=== PATIENT | male | born 1980 | race African-American/Black ===

== ENCOUNTER 2020-11-05 00:36 | Emergency (ER) | payer OTHER ==
--- NOTE | 2020-11-05 01:15 | ED Physician Documentation ---
PD HPI ABD PAIN - Stated complaint Stated Complaint: AB PX - Chief complaint Chief Complaint: Abd Pain - History obtained from History obtained from: Patient - History of Present Illness Timing - onset: How many days ago (2) Timing - details: Gradual onset, Constant, Waxing and waning Pain level max: 10 Quality: Pain Location: Other (across lower abdomen) Radiation: Lower back Improved by: Laying still Worsened by: Moving, Palpation Associated symptoms: Nausea, Vomiting. No: Fever, Diarrhea, Constipation Similar symptoms before: Has not had sx before Recently seen: Not recently seen - Additional information Additional information: patient c/o 2 days of abdominal pain across lower abdomen that radiates around both sides to lower back. The pain was of gradual onset but is constant and has steadily progressed since onset. He has been taking OTC weight loss products (hydroxycutt gummi and JOANNE apple cider vinegar), and he thinks his symptoms might be due to these products. He has no history of similar symptoms. Review of Systems Constitutional: denies: Fever, Chills, Sweats Cardiac: reports: Reviewed and negative Respiratory: reports: Reviewed and negative GI: reports: Abdominal Pain, Nausea, Vomiting. denies: Abdominal Swelling, Constipation, Diarrhea, Hematemesis, Bloody / black stool : denies: Dysuria, Frequency, Hematuria Skin: denies: Rash PD PAST MEDICAL HISTORY - Past Medical History Past Medical History: No Cardiovascular: None Respiratory: None Neuro: None Endocrine/Autoimmune: None GI: None : None HEENT: None Psych: None Musculoskeletal: None Derm: None - Past Surgical History Past Surgical History: No - Present Medications Home Medications: Ambulatory Orders Medication Instructions Recorded Confirmed Amox/Clav 875/125 [Augmentin 1 tablet PO Q12H 7 Days #14 tablet 11/05/20 875/125 Tab] Ondansetron Odt [Zofran] 4 mg TL Q6H PRN #10 tablet 11/05/20 oxyCODONE [Roxicodone] 5 - 10 mg PO Q6H PRN #20 tablet 11/05/20 - Allergies Allergies/Adverse Reactions: Allergies Allergy/AdvReac Type Severity Reaction Status Date / Time No Known Drug Allergies Allergy Verified 11/05/20 00:49 - Social History Does the pt smoke?: No Smoking Status: Never smoker Does the pt drink ETOH?: No Does the pt have substance abuse?: No - Immunizations Immunizations are current?: No - POLST Patient has POLST: No PD ED PE NORMAL - Vitals Vital signs reviewed: Yes - General General: Alert and oriented X 3, Well developed/nourished, Other (obvious painful distress) - HEENT HEENT: Moist mucous membranes - Cardiac Cardiac: RRR, No murmur - Respiratory Respiratory: No respiratory distress, Clear bilaterally - Abdomen Abdomen: Soft, Non distended, Other (TTP across lower abdomen, worst in LLQ. Palpation of RLQ causes increased pain in LLQ. there is no guarding nor rebound tenderness) - Back Back: No CVA TTP - Derm Derm: Normal color, Warm and dry Results - Vitals Vitals: Vital Signs - 24 hr 11/05/20 11/05/20 11/05/20 00:46 00:52 01:35 Temperature 37.1 C Heart Rate 108 H 96 Respiratory 19 19 7 L Rate Blood Pressure 154/62 H 132/77 H O2 Saturation 99 97 11/05/20 11/05/20 11/05/20 01:52 02:14 02:33 Temperature Heart Rate 98 88 96 Respiratory 17 16 17 Rate Blood Pressure 132/71 H 132/80 H 128/83 H O2 Saturation 98 98 97 11/05/20 11/05/20 03:52 04:04 Temperature Heart Rate 82 87 Respiratory 15 16 Rate Blood Pressure 130/99 H 130/67 O2 Saturation 98 99 Oxygen O2 Source Room air - Labs Labs: Laboratory Tests 11/05/20 11/05/20 11/05/20 01:44 01:44 02:55 WBC 9.8 RBC 5.33 Hgb 14.1 Hct 43.9 MCV 82.4 MCH 26.5 L MCHC 32.1 RDW 11.7 L Plt Count 205 MPV 10.9 Neut # (Auto) 7.6 H Lymph # (Auto) 1.3 L Gregory # (Auto) 0.8 Eos # (Auto) 0.1 Baso # (Auto) 0.1 Absolute Nucleated RBC 0.00 Nucleated RBC % 0.0 Sodium 135 Potassium 3.8 Chloride 98 L Carbon Dioxide 27 Anion Gap 10.0 BUN 12 Creatinine 1.1 Estimated GFR (MDRD) 90 Glucose 115 H Calcium 9.4 Total Bilirubin 2.8 H AST 79 H ALT 82 H Alkaline Phosphatase 76 Total Protein 7.8 Albumin 4.3 Globulin 3.5 Albumin/Globulin Ratio 1.2 Lipase 21 L Urine Color YELLOW Urine Clarity CLEAR Urine pH 6.0 Ur Specific [place] <=1.005 Urine Protein NEGATIVE Urine Glucose (UA) NEGATIVE Urine Ketones NEGATIVE Urine Occult Blood NEGATIVE Urine Nitrite NEGATIVE Urine Bilirubin NEGATIVE Urine Urobilinogen 2 H Ur Leukocyte Esterase NEGATIVE Ur Microscopic Review NOT INDICATED Urine Culture Comments NOT INDICATED - Rads (name of study) CT A/P with IV contrast Radiology: Prelim report reviewed, See rad report PD MEDICAL DECISION MAKING - ED course Complexity details: reviewed results, re-evaluated patient, considered differential, d/w patient ED course: reassuring blood test results including normal WBC (incidental note of mildly abnormal LFTs). CT A/P reveals mild, uncomplicated sigmoid diverticulitis which is c/w H+P. He appears comfortable after 5mg IV morphine, 30mg IV toradol, and 1 liter NS. results discussed with patient. he is discharged after PO oxycodone, augmentin, and zofran with rx for these medications. Departure - Departure Disposition: 01 Home, Self Care Clinical Impression: Diverticulitis of gastrointestinal tract Condition: Good Instructions: ED Diverticulitis Follow-Up: NICOLE CAVAZOS MD [Primary Care Provider] - Prescriptions: Amox/Clav 875/125 [Augmentin 875/125 Tab] 1 tablet PO Q12H 7 Days #14 tablet oxyCODONE [Roxicodone] 5 - 10 mg PO Q6H PRN #20 tablet PRN Reason: Pain Ondansetron Odt [Zofran] 4 mg TL Q6H PRN #10 tablet PRN Reason: Nausea / Vomiting Comments: As we discussed, your liver function tests were slightly abnormal. This is a coincident finding (it is not related to tonight's symptoms), but you should discuss the results with your doctor; further testing might be needed. Forms: Activity restrictions Discharge Date/Time: 11/05/20 04:20
[2020-11-05] MEDS ORDERED: KETOROLAC 30 MG/ML VIAL IVP STA (01:29)
[2020-11-05] MEDS ORDERED: MORPHINE 10 MG/ML VIAL IVP STA (01:29)
[2020-11-05] MEDS ORDERED: SODIUM CHLORIDE 0.9% 1,000 ML IV STA (01:31)
[2020-11-05] MEDS ORDERED: IOVERSOL 320 100 ML VIAL IVP ONE ×2 (01:43→02:39)
[2020-11-05 01:50] LABS: BASOPHILS # (AUTO) 0.1 10^3/uL (0.0-0.1); BASOPHILS % (AUTO) 0.5 %; EOSINOPHILS # (AUTO) 0.1 10^3/uL (0.0-0.7); EOSINOPHILS % (AUTO) 0.5 %; HCT - HEMATOCRIT 43.9 % (42.0-52.0); HGB - HEMOGLOBIN 14.1 g/dL (14.0-18.0); LYMPHOCYTES # (AUTO) 1.3 10^3/uL (1.5-3.5); LYMPHOCYTES % (AUTO) 12.8 %; MEAN CORPUSCULAR HEMOGLOBIN 26.5 pg (27.0-31.0); MEAN CORPUSCULAR HGB CONC 32.1 g/dL (32.0-36.0); MEAN CORPUSCULAR VOLUME 82.4 fL (80.0-94.0); MEAN PLATELET VOLUME 10.9 fL (7.4-11.4); MONOCYTES # (AUTO) 0.8 10^3/uL (0.0-1.0); MONOCYTES % (AUTO) 8.5 %; NEUTROPHILS # (AUTO) 7.6 10^3/uL (1.5-6.6); NEUTROPHILS % (AUTO) 77.3 %; PLT - PLATELET COUNT 205 10^3/uL (130-450); RED BLOOD COUNT 5.33 10^6/uL (4.70-6.10); RED CELL DISTRIBUTION WIDTH 11.7 % (12.0-15.0); WHITE BLOOD COUNT 9.8 x10^3/uL (4.8-10.8)
[2020-11-05 02:02] LABS: ALBUMIN 4.3 g/dL (3.2-5.5); ALBUMIN/GLOBULIN RATIO 1.2 (1.0-2.2); BILIRUBIN,TOTAL 2.8 mg/dL (0.2-1.0); CALCIUM 9.4 mg/dL (8.5-10.3); CREATININE 1.1 mg/dL (0.6-1.2); POTASSIUM 3.8 mmol/L (3.5-5.0); TOTAL PROTEIN 7.8 g/dL (6.7-8.2)
[2020-11-05 03:02] LABS: BILIRUBIN,URINE NEGATIVE (NEGATIVE); CLARITY,URINE CLEAR (CLEAR); GLUCOSE, URINE (UA) NEGATIVE (NEGATIVE); KETONES,URINE (UA) NEGATIVE (NEGATIVE); LEUKOCYTE ESTERASE, URINE NEGATIVE (NEGATIVE); NITRITE,URINE NEGATIVE (NEGATIVE); OCCULT BLOOD,URINE NEGATIVE (NEGATIVE); PROTEIN,URINE NEGATIVE (NEGATIVE); UROBILINOGEN,URINE 2 E.U./dL (NORMAL)
[2020-11-05] MEDS ORDERED: oxyCODONE 5 MG TABLET PO STA (03:53)
[2020-11-05] MEDS ORDERED: ONDANSETRON ODT 4 MG TABLET TL STA (03:54)
[2020-11-05] MEDS ORDERED: AMOX/CLAV 875 MG/125 MG TABLET PO STA (03:55)
[2020-11-05 04:06] VITALS: BP 130/67
--- NOTE | 2020-11-05 09:51 | CT Report ---
PROCEDURE: Abdomen/Pelvis W INDICATIONS: abdominal pain, predominantly LLQ CONTRAST: IV CONTRAST: Optiray 320 ml: 100 PO CONTRAST: *NO PO CONTRAST TECHNIQUE: After the administration of 100 mL Optiray 320 contrast, 5 mm thick sections acquired from the diaphr agms to the symphysis. 5 mm thick coronal and sagittal reformats were acquired. For radiation dose reduction, the following was used: automated exposure control, adjustment of mA and/or kV according to patient size. COMPARISON: None. FINDINGS: Image quality: Excellent. ABDOMEN: Lung bases: Atelectasis in the right middle lobe. No pleural effusion or pneumothorax. Heart size is normal. Solid organs: Liver and spleen are normal in size and enhancement. Gallbladder is partially distend ed. Biliary system is non dilated. Pancreas enhances normally. No adrenal nodules. Kidneys demons trate normal size and enhancement, without hydronephrosis. Simple fluid density 2.3 cm cyst in the s uperior left kidney. Peritoneum and bowel: No hiatal hernia. No small bowel obstruction. The appendix is normal. There is moderate bowel wall thickening in the sigmoid colon centered about a inflamed diverticula. No evidenc e of perforation or intra-abdominal abscess formation. Nodes and vessels: No retroperitoneal or mesenteric adenopathy by size criteria. Aorta and inferior vena cava are normal in size. Miscellaneous: No ventral hernias. PELVIS: Genitourinary: Bladder wall thickness is normal. Miscellaneous: No inguinal hernias or adenopathy. Bones: No suspicious bony lesions. No vertebral body compression fractures. IMPRESSION: Uncomplicated sigmoid diverticulitis. No significant discrepancy in the preliminary report. Reviewed by: Sascha Pittman on 11/05/2020 8:50 AM NIKKY Approved by: Sascha Pittman on 11/05/2020 8:50 AM NIKKY Station ID: [id number]
== END 2020-11-05 04:20 | disposition home or self-care (01) ==
LOC: ED 00:36
DX: K57.32 Diverticulitis of large intestine without perforation or abscess without bleeding (principal); R94.5 Abnormal results of liver function studies
CPT/HCPCS: 36415; 74177; 80053; 81003; 83690; 85025; 96361; 96374; 96375; 99284; A9270; Q0162; Q9967; 81001; 87086

== ENCOUNTER 2021-06-02 17:45 | Emergency (ER) | payer OTHER ==
[2021-06-02 18:22] LABS: BILIRUBIN,URINE NEGATIVE (NEGATIVE); GLUCOSE, URINE (UA) 100 mg/dL (NEGATIVE); KETONES,URINE (UA) NEGATIVE (NEGATIVE); LEUKOCYTE ESTERASE, URINE NEGATIVE (NEGATIVE); NITRITE,URINE NEGATIVE (NEGATIVE); OCCULT BLOOD,URINE NEGATIVE (NEGATIVE); PROTEIN,URINE NEGATIVE (NEGATIVE); UROBILINOGEN,URINE 0.2 (NORMAL) E.U./dL (NORMAL)
[2021-06-02 18:25] LABS: CLARITY,URINE CLEAR (CLEAR)
[2021-06-02 18:34] LABS: BASOPHILS % (AUTO) 0.4 %; EOSINOPHILS # (AUTO) 0.1 10^3/uL (0.0-0.7); EOSINOPHILS % (AUTO) 1.8 %; HCT - HEMATOCRIT 45.8 % (42.0-52.0); HGB - HEMOGLOBIN 14.6 g/dL (14.0-18.0); LYMPHOCYTES # (AUTO) 1.3 10^3/uL (1.5-3.5); LYMPHOCYTES % (AUTO) 17.9 %; MEAN CORPUSCULAR HGB CONC 31.9 g/dL (32.0-36.0); MEAN CORPUSCULAR VOLUME 84.7 fL (80.0-94.0); MEAN PLATELET VOLUME 8.9 fL (7.4-11.4); MONOCYTES # (AUTO) 0.6 10^3/uL (0.0-1.0); MONOCYTES % (AUTO) 8.3 %; NEUTROPHILS # (AUTO) 5.1 10^3/uL (1.5-6.6); NEUTROPHILS % (AUTO) 71.2 %; PLT - PLATELET COUNT 218 10^3/uL (130-450); RED BLOOD COUNT 5.41 10^6/uL (4.70-6.10); RED CELL DISTRIBUTION WIDTH 11.8 % (12.0-15.0); WHITE BLOOD COUNT 7.2 x10^3/uL (4.8-10.8)
[2021-06-02 18:52] LABS: ALBUMIN 4.4 g/dL (3.2-5.5); ALBUMIN/GLOBULIN RATIO 1.3 (1.0-2.2); BILIRUBIN,TOTAL 1.8 mg/dL (0.2-1.0); CALCIUM 9.1 mg/dL (8.5-10.3); CREATININE 1.2 mg/dL (0.6-1.2); POTASSIUM 3.8 mmol/L (3.5-5.0); TOTAL PROTEIN 7.9 g/dL (6.7-8.2)
--- NOTE | 2021-06-02 19:02 | ED Physician Documentation ---
PD HPI ABD PAIN - Stated complaint Stated Complaint: ABD PX - Chief complaint Chief Complaint: Abd Pain - History obtained from History obtained from: Patient - History of Present Illness Timing - onset: How many hours ago (4), Today Timing - duration: Hours (onset about 4 hours ago of LLQ pain feeling similar to diverticulitis pain he had in October 2020 that improved with outpt treatment.) Timing - details: Gradual onset, Still present Quality: Cramping, Aching, Pain Location: LLQ Radiation: No: Lower back, Left flank Improved by: Laying still. No: Position Worsened by: Palpation. No: Moving, Breathing, Position Associated symptoms: Diarrhea (one episode earlier today). No: Fever, Nausea, Vomiting, Melena, Hematochezia, Dysuria Similar symptoms before: Diagnosis (diverticulitis uncomplicated 7 months ago Dx with [address] and treated outpatient.) Recently seen: Not recently seen Review of Systems Constitutional: denies: Fever, Chills Nose: denies: Rhinorrhea / runny nose, Congestion Throat: denies: Sore throat Respiratory: denies: Cough GI: reports: Abdominal Pain, Diarrhea (one episode today). denies: Nausea, Vomiting, Constipation : denies: Dysuria Musculoskeletal: denies: Back pain Neurologic: denies: Generalized weakness PD PAST MEDICAL HISTORY - Past Medical History Cardiovascular: None Respiratory: None Neuro: None Endocrine/Autoimmune: None GI: Diverticulitis : None HEENT: None Psych: None Musculoskeletal: None Derm: None - Past Surgical History Past Surgical History: No - Present Medications Home Medications: Ambulatory Orders Medication Instructions Recorded Confirmed Amox/Clav 875/125 [Augmentin 1 tablet PO Q12H 7 Days #14 tablet 11/05/20 875/125 Tab] Ondansetron Odt [Zofran] 4 mg TL Q6H PRN #10 tablet 11/05/20 oxyCODONE [Roxicodone] 5 - 10 mg PO Q6H PRN #20 tablet 11/05/20 Ibuprofen [Motrin] 600 mg PO TID PRN #20 tab 06/02/21 Oxycodone HCl/Acetaminophen 1 each PO Q6H PRN #10 tablet 06/02/21 [Percocet 5-325 mg Tablet] Sulfamethox/Trimeth 800/160 1 each PO BID #14 tablet 06/02/21 [Bactrim Ds 800/160] metroNIDAZOLE [Flagyl] 500 mg PO BID 7 Days #14 tablet 06/02/21 - Allergies Allergies/Adverse Reactions: Allergies Allergy/AdvReac Type Severity Reaction Status Date / Time No Known Drug Allergies Allergy Verified 11/05/20 00:49 - Social History Does the pt smoke?: No Smoking Status: Never smoker Does the pt drink ETOH?: No Does the pt have substance abuse?: No - Immunizations Immunizations are current?: No - POLST Patient has POLST: No PD ED PE NORMAL - Vitals Vital signs reviewed: Yes - General General: Alert and oriented X 3, No acute distress, Well developed/nourished - HEENT HEENT: Pharynx benign - Neck Neck: Supple, no meningeal sign, No adenopathy - Cardiac Cardiac: RRR, No murmur - Respiratory Respiratory: Clear bilaterally - Abdomen Abdomen: Normal bowel sounds, Soft, Non distended, No organomegaly, Other (tneder locally LLQ with mild guarding, but no rebound nor percussion tenderness. Rest of abd not tender without referred tenderness. ) - Male Male : Deferred - Rectal Rectal: Deferred - Back Back: No CVA TTP - Derm Derm: Normal color, Warm and dry - Neuro Neuro: Alert and oriented X 3, No motor deficit, Normal speech Results - Vitals Vitals: Oxygen O2 Source Room air - Labs Labs: Laboratory Tests 06/02/21 06/02/21 06/02/21 18:03 18:26 18:26 WBC 7.2 RBC 5.41 Hgb 14.6 Hct 45.8 MCV 84.7 MCH 27.0 MCHC 31.9 L RDW 11.8 L Plt Count 218 MPV 8.9 Neut # (Auto) 5.1 Lymph # (Auto) 1.3 L [place] # (Auto) 0.6 Eos # (Auto) 0.1 Baso # (Auto) 0.0 Absolute Nucleated RBC 0.00 Nucleated RBC % 0.0 Sodium 139 Potassium 3.8 Chloride 101 Carbon Dioxide 30 Anion Gap 8.0 BUN 14 Creatinine 1.2 Estimated GFR (MDRD) 81 L Glucose 101 H Calcium 9.1 Total Bilirubin 1.8 H AST 50 H ALT 44 Alkaline Phosphatase 63 Total Protein 7.9 Albumin 4.4 Globulin 3.5 Albumin/Globulin Ratio 1.3 Lipase 29 Urine Color YELLOW Urine Clarity CLEAR Urine pH 6.0 Ur Specific [place] 1.020 Urine Protein NEGATIVE Urine Glucose (UA) 100 H Urine Ketones NEGATIVE Urine Occult Blood NEGATIVE Urine Nitrite NEGATIVE Urine Bilirubin NEGATIVE Urine Urobilinogen 0.2 (NORMAL) Ur Leukocyte Esterase NEGATIVE Ur Microscopic Review NOT INDICATED Urine Culture Comments NOT INDICATED PD MEDICAL DECISION MAKING - ED course Complexity details: reviewed old records, re-evaluated patient, considered differential (shared decision to treat for diverticulitis with symptoms similar to prior episode and not having general perintoneal signs. ), d/w patient Departure - Departure Disposition: 01 Home, Self Care Clinical Impression: Diverticulitis Abdominal pain Qualifiers: Abdominal location: left lower quadrant Qualified Code(s): R10.32 - Left lower quadrant pain Condition: Stable Record reviewed to determine appropriate education?: Yes Instructions: ED Diverticulitis Follow-Up: SUZETTE Nunez [Provider Group] Prescriptions: Sulfamethox/Trimeth 800/160 [Bactrim Ds 800/160] 1 each PO BID #14 tablet metroNIDAZOLE [Flagyl] 500 mg PO BID 7 Days #14 tablet Ibuprofen [Motrin] 600 mg PO TID PRN #20 tab PRN Reason: Pain Oxycodone HCl/Acetaminophen [Percocet 5-325 mg Tablet] 1 each PO Q6H PRN #10 tablet PRN Reason: pain Comments: With your abdominal pain feeling like prior episode of diverticulitis, we can treat it that way with anti-inflammatories antibiotics and pain medicine. Stay well-hydrated. Eat regular diet over the next few days. Follow-up with your primary care if not improved over the next 2 to 3 days and return if worse. Transmitted your prescriptions to [facility] pharmacy in [place]. I am prescribing a short course of narcotic pain medication for you. These are potentially dangerous and addictive medications that should be used carefully. These medications may constipate you. Take an [id number] stool softener such as docusate twice daily with plenty of water while taking these medications. If you go 24 hours without a bowel movement, take [id number] MiraLAX, per package instructions. Do not drink or drive while taking these medications. If you received narcotic or sedating medications while in the emergency department do not drive for 24 hours. Store this medication in a safe, secure place and out of reach of children. It is a violation of federal law to give or sell this medication to another person or to use in a manner other than prescribed. The ED will not refill narcotic prescriptions, including prescriptions lost or stolen. You can dispose of unwanted medications at the [employer]'s office or at several pharmacies such as [facility]. Forms: Activity restrictions Discharge Date/Time: 06/02/21 21:09
[2021-06-02] MEDS ORDERED: KETOROLAC 30 MG/ML VIAL IVP STA (19:14)
[2021-06-02] MEDS ORDERED: cefTRIAXone 1 GM VIAL IVP STA (19:14)
[2021-06-02] MEDS ORDERED: metroNIDAZOLE 250 MG TABLET PO STA (19:15)
[2021-06-02] MEDS ORDERED: ACETAMINOPHEN 325 MG TABLET PO STA (19:15)
[2021-06-02] MEDS ORDERED: MORPHINE 2 MG/ML CARPUJECT IVP STA (19:15)
[2021-06-02 20:27] VITALS: BP 141/99
[2021-06-02] MEDS ORDERED: oxyCODONE/ACET 5/325 Prepack 4 PO STA (20:33)
== END 2021-06-02 21:09 | disposition home or self-care (01) ==
LOC: ED 17:45
DX: K57.92 Diverticulitis of intestine, part unspecified, without perforation or abscess without bleeding (principal)
CPT/HCPCS: 36415; 80053; 81003; 83690; 85025; 96374; 96375; 99284; A9270; 81001; 87086

== ENCOUNTER 2021-07-24 09:47 | Outpatient (CLI) | payer OTHER ==
--- NOTE | 2021-07-25 08:44 | SLEEP CARE CONSULTATION ---
Information from patient questionnaire entered by Sarthak Hughes MA. I have reviewed and concur with the information entered by Sarthak Hughes MA. This document represents the service I personally performed and the decisions made by me, Ramesh Osorio MD, [facility]. History of Present Illness Service Date and Time: 07/24/2021 0947 Reason for Visit: New patient Chief Complaint: reports: Insomnia, Unrefreshed sleep, Snoring, Observed pauses in breathing, Fatigue Date of Onset: 2018 Usual bedtime: 0400 Time it takes to fall asleep: 5 hours Observed to quit breathing while asleep: No Number of times waking at night: once Reasons for waking at night: reports: Choking, Snoring, Gasping for air, Bathroom Recalls having dreams: No Usually gets out of bed at: 0700 Feels refreshed in the morning: No Morning headache: Yes Sleepy or fatigued during the day: Yes Ever fallen asleep while driving: No Takes day naps: No Dreams during day naps: No Prior sleep studies: No Additional HPI information: I had the pleasure of seeing Mr. Fulton today regarding the possibility of him having a sleep disorder. As you know, he is a 40 year old gentleman who complains of loud snore, nocturnal choking, insomnia, and excessive daytime sleepiness. The patient tells me that he normally goes to bed around 4 am, and it takes him approximately several hours to fall asleep. 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 He has been told that he snores loudly and irregularly at night. He has never been observed to stop breathing in his sleep. However, he sleeps alone. He can recall waking up on the average of 1 time during the night. Most of the time he wakes up because of his own snoring, choking, and having to gasp for air. There is a lot of tossing and turning in his sleep. No somniloquy (sleep talking) or somnambulism (sleep wa lking). In the morning he usually gets up out of the bed around 7 - 8 a.m. not feeling refreshed nor rested. He occasionally has a morning headache. During the day he complains of feeling sleepy and fatigued. He never has fallen asleep while driving nor has had any accident due to sleepiness. He usually does not take naps during the day. Upon falling asleep during the day he denies having vivid dreams. He has never had sleep paralysis, experienced cataplexy or symptoms of restless leg syndrome. He reports having impaired concentration during the day. - Parasomnia Symptoms Ever been unable to move upon waking from sleep: No Walks in sleep: No Talks in sleep: No Ever acted out dreams in sleep: No Ever felt weak in the knees when startled or emotional: No Bothered by creepy, crawly, restless sensations in legs: No Problems with memory or concentration: Yes Subjective Initial [place] Sleepiness Scale score: 13 (2020) Past Medical History Past Medical History: reports: Anxiety, Depression, Mood disorder, Attention deficit Social History The patient's occupation is a AM. Patient is and lives in . Have you smoked in the past 12 months: No Alcohol use: Yes Alcohol amount and frequency: occasually Caffeine use: No Family History Family history of sleep disordered breathing: No Allergies and Home Medications Known drug allergies: No Drug allergies reviewed: Yes Home medication list reviewed: Yes Review of Systems Cardiovascular: reports: high blood pressure Respiratory: denies: shortness of breath, wheeze, sputum production, chronic cough, other Gastrointestinal: denies: heartburn, difficulty swallowing, nausea, vomitting, diarrhea, abdominal pain, other Urinary: denies: incontinence, frequency, urgency, impotence, other Neurological: reports: headaches Psychiatric: denies: Attention Deficit Hyperactivity, anxiety, depression, mood disorder, claustrophobia, other Ear/Nose/Throat: reports: dry mouth/throat, injury to nose Endocrine: reports: unexplained weakness Musculoskeletal: denies: joint pain, neck pain, back pain, joint swelling, muscle pain or cramping, mobility problems, other Immunologic: reports: sneezing, itching Physical Exam Vital signs obtained and entered by: NINA SAMANO Blood Pressure: 139/99 (left) Cuff size: wrist Heart Rate: 72 O2 Saturation: 98 (with mask) Height: 6 ft Weight: 190 lb (normally no clothes) Body Mass Index: 25.7 BMI Classification: Overweight Impression and Plan IMPRESSION: 1. Obstructive Sleep Apnea-Hypopnea Syndrome, as suggested by history of loud and irregular snoring, nocturnal choking, unrefreshed sleep, cognitive impairment, and daytime hypersomnolence. Untreated obstructive sleep apnea can also cause hypertension. I recommend proceeding to polysomnography to confirm the diagnosis and to assess severity. If he has significant sleep disordered breathing, a manual CPAP titration study will also be performed to find the optimal treatment pressure. I informed the patient of what the sleep studies involve and after some discussion, he agreed to proceed. Plan: 1. Schedule polysomnography + manual CPAP titration study and return in 1 to 2 weeks after the study to discuss result and initiate therapy. 2. Avoid long distance driving or when feeling sleepy. 3. Avoid alcohol, sedative and muscle relaxant around bedtime. Follow up with Sleep Care in: 1-2 months Visit Type: In Office Time Spent with Patient (minutes): 15 Provider Statement: I spent 100% of the Face to Face Visit with the patient with greater than 50% spent counseling the patient and coordination of care.
[2021-07-25 08:45] VITALS: BP 139/99
== END 2021-07-24 09:48 | disposition home or self-care (01) ==
LOC: SC 09:47
PROVIDERS: ATTEND Internal Medicine Pulmonary Disease
DX: R06.83 Snoring (principal); R06.81 Apnea, not elsewhere classified; G47.10 Hypersomnia, unspecified
CPT/HCPCS: 99202; 99212

== ENCOUNTER 2021-08-14 09:11 | Outpatient (CLI) | payer OTHER | END 2021-08-14 09:12 | disposition home or self-care (01) | LOC: SC 09:11 | PROVIDERS: ATTEND Internal Medicine Pulmonary Disease | DX: R06.83 Snoring (principal); R06.81 Apnea, not elsewhere classified; G47.8 Other sleep disorders; G47.00 Insomnia, unspecified; I10 Essential (primary) hypertension; R09.02 Hypoxemia | CPT/HCPCS: 95806 ==

== ENCOUNTER 2021-08-28 14:19 | Outpatient (CLI) | payer OTHER ==
--- NOTE | 2021-08-28 14:49 | SLEEP CARE CONSULTATION ---
Information from patient questionnaire entered by Sarthak Hughes MA. I have reviewed and concur with the information entered by Sarthak Hughes MA. This document represents the service I personally performed and the decisions made by me, Ramesh Osorio MD, [facility]. History of Present Illness Service Date and Time: 08/28/2021 1419 Initial [place] Sleepiness Scale score: 13 (2020) Current [place] Sleepiness Scale score: 4 (2021) Additional HPI information: Mr. Fulton returned for follow up of the home sleep apnea test (HSAT) performed on 08/14/2021. The test showed no significant sleep disordered breathing with an AHI of 2.0 and idania oxygen saturation of 82%. The patient slept in both supine and non-supine positions. Heart rate was occasionally high, up to 152 beats per minute. Average heart rate was 93 beats per minute. The patient was informed of these findings. I explained to him that the test was negative. The patient recalls not sleeping much during the test because he had it on between 8 pm and 4 am which is not his usual sleep time (he works evening shift). Sleep Study - Results Prior sleep studies: No Allergies and Home Medications Known drug allergies: No Drug allergies reviewed: Yes Home medication list reviewed: No Physical Exam Vital signs obtained and entered by: NINA SAMANO Blood Pressure: 140/98 (LEFT, PULSE 98) Cuff size: wrist Heart Rate: 99 O2 Saturation: 97 (N95 ASK) Height: 6 ft Weight: 201 lb (WITH CLOTHES) Body Mass Index: 27.2 BMI Classification: Overweight Impression and Plan IMPRESSION: 1. Suspected sleep apnea, based on his history of loud and irregular snoring, nocturnal choking, unrefreshed sleep, cognitive impairment, and daytime hypersomnolence. The home sleep apnea test (HSAT) could be falsely negative if he was awake for a good portion of the test (the AHI will be diluted by awake time). I will order an in-laboratory polysomnography for further evaluation. PLAN: 1. Schedule an in-laboratory polysomnography 2. Return for a follow up after the sleep study. Follow up with Sleep Care in: 1-2 months Plan: in-lab PSG Visit Type: In Office Time Spent with Patient (minutes): 15 Provider Statement: I spent 100% of the Face to Face Visit with the patient with greater than 50% spent counseling the patient and coordination of care.
[2021-08-28 14:50] VITALS: BP 140/98
== END 2021-08-28 14:20 | disposition home or self-care (01) ==
LOC: SC 14:19
PROVIDERS: ATTEND Internal Medicine Pulmonary Disease
DX: R06.83 Snoring (principal); G47.8 Other sleep disorders; R41.89 Other symptoms and signs involving cognitive functions and awareness; G47.10 Hypersomnia, unspecified
CPT/HCPCS: 99212

== ENCOUNTER 2021-10-30 19:25 | Outpatient (CLI) | payer OTHER | END 2021-10-30 19:26 | disposition home or self-care (01) | LOC: SC 19:25 | PROVIDERS: ATTEND Internal Medicine Pulmonary Disease | DX: G47.33 Obstructive sleep apnea (adult) (pediatric) (principal) | CPT/HCPCS: 95810 ==

== ENCOUNTER 2021-11-16 16:26 | Outpatient (CLI) | payer OTHER ==
[2021-11-16 16:41] VITALS: BP 122/70
--- NOTE | 2021-11-16 16:41 | SLEEP CARE CONSULTATION ---
Information from patient questionnaire entered by Sarthak Hughes MA. I have reviewed and concur with the information entered by Sarthak Hughes MA. This document represents the service I personally performed and the decisions made by , Priya Oakley ARNP. History of Present Illness Service Date and Time: 11/16/2021 1620 Initial [place] Sleepiness Scale score: 13 (2020) Current [place] Sleepiness Scale score: 5 (11/24) Additional HPI information: ANASTASIIA MARCUM returns for follow up and results of the recently performed polysomnography. I explained the pathophysiology behind obstructive sleep apnea. We then spent quite a bit of time discussing different treatment options. For mild obstructive sleep apnea, surgery and oral appliance are alternatives to nasal CPAP therapy but in moderate or severe cases, nasal CPAP is the most effective and reliable treatment. Because apnea is primarily in supine position, then positional management therapy could be partially effective. Methods discussed such as positioning with pillows, using a T-shirt with tennis balls in the back to prevent supine sleep. I reviewed the impact of weight changes on sleep apnea and strongly recommended losing weight. I explained how CPAP machine works and what to expect when using the machine. [facility] patient education PAP tips and Non Pap treatment pamphlets reviewed and given to patient. Patient counseled not drink alcohol less than 4 hours before bedtime as it can increase snoring and apnea. Patient was cautioned about risks of drowsy driving until sleepiness symptoms resolve. Sleep Study - Results Type of Sleep Study: Polysomnography (F/U POLY, 10/31/2019 [facility],) Prior sleep studies: No Polysomnography/Home Sleep Study results: IMPRESSION: The quality of the study is good. 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 The sleep architecture was abnormal for sleep fragmentation and reduced amount of time spent in REM and slow wave sleep (N3). Respiratory monitoring showed mild obstructive sleep apnea-hypopnea (AHI = 14.0) associated with frequent arousals, oxyhemoglobin desaturation and minimal hypoxia (idania oxygen saturation of 87%). The respiratory events occurred mainly during supine sleep (supine AHI = 20.4; non-supine = 6.23). Snore was light in intensity. There was no significant periodic leg movement of sleep. Cardiac rhythm was normal sinus rhythm without significant arrhythmia. No abnormal behavior (parasomnia) observed during the night. Allergies and Home Medications Home medication list reviewed: Yes (no changes) Allergy and home medication list: Allergies No Known Drug Allergies Allergy (Verified 11/05/20 00:49) Review of Systems Review of systems same as previous: Yes (no changes) Physical Exam Vital signs obtained and entered by: NINA SAMANO Blood Pressure: 122/70 (RESP 18, PULSE 70, ) Heart Rate: 65 O2 Saturation: 97 (PAPER) Height: 6 ft Weight: 198 lb Body Mass Index: 26.8 BMI Classification: Overweight Impression and Plan 1. Obstructive Sleep Apnea-Hypopnea Syndrome, mild, with lowest oxygen saturation of 87%. Obviously this is the cause of the patients symptoms of unrefreshed sleep, and excessive daytime sleepiness. Positive pressure therapy could benefit anxiety, depression, mood disorder and attention deficit. I reviewed with patient different therapies for sleep apnea, including oral appliance, surgery and CPAP therapy. I also advised weight loss to reduce apneas. [facility] would [facility]. I gave him a card with office number and asked him to call us with his decision. Our follow up will depend on which modality he chooses. I advised him to avoid supine sleep since he has more apneas in this sleeping position. He voiced understanding and agreement. * Patient to call office with choice of therapy * Attempt to lose weight. * Avoid alcohol consumption near bedtime. * Avoid supine sleep to reduce apneas until starting therapy * The patient is again cautioned about driving until sleepiness completely resolves. * Return dependant upon type of therapy chosen, 1-3 months Counseling Topics: Sleeping position, Weight loss health impact Visit Type: In Office Time Spent with Patient (minutes): 20 Provider Statement: I spent 100% of the Face to Face Visit with the patient with greater than 50% spent counseling the patient and coordination of care.
== END 2021-11-16 16:27 | disposition home or self-care (01) ==
LOC: SC 16:26
PROVIDERS: ATTEND Nurse Practitioner Family
DX: G47.33 Obstructive sleep apnea (adult) (pediatric) (principal)
CPT/HCPCS: 99212

== ENCOUNTER 2021-12-03 21:26 | Emergency (ER) | payer OTHER ==
[2021-12-03] MEDS ORDERED: ONDANSETRON ODT 4 MG TABLET TL STA (21:54)
--- NOTE | 2021-12-03 21:58 | ED Physician Documentation ---
PD HPI ABD PAIN - Stated complaint Stated Complaint: ABD PX, HEADACHE - Chief complaint Chief Complaint: Abd Pain - History obtained from History obtained from: Patient - Additional information Additional information: The patient comes to the emergency department with chief complaint of abdominal pain, headache, nausea, and cough for the last 4 days. He states that a coworker had a similar illness a few days before, but was feeling better after 24 hours. Patient states that his symptoms come and go but that they feel worse at night. The patient had a colonoscopy a few months ago which was unre markable, but does not think he had an EGD at that time. He states that he has not had any vomiting, but does get nauseated when the pain comes on and will spit more than usual. He denies any fevers or chills. He denies any sputum production with his cough. No nasal congestion. He is vaccinated for both COVID and influenza. No other complaints at this time. Review of Systems Ten Systems: 10 systems reviewed and negative Constitutional: reports: Reviewed and negative Eyes: reports: Reviewed and negative Ears: reports: Reviewed and negative Nose: reports: Reviewed and negative Throat: reports: Reviewed and negative Cardiac: reports: Reviewed and negative Respiratory: reports: Cough GI: reports: Abdominal Pain, Nausea : reports: Reviewed and negative Skin: reports: Reviewed and negative Musculoskeletal: reports: Reviewed and negative Neurologic: reports: Headache Psychiatric: reports: Reviewed and negative Endocrine: reports: Reviewed and negative Immunocompromised: reports: Reviewed and negative PD PAST MEDICAL HISTORY - Past Medical History Cardiovascular: None Respiratory: None Neuro: None Endocrine/Autoimmune: None GI: Diverticulitis : None HEENT: None Psych: None Musculoskeletal: None Derm: None - Past Surgical History Past Surgical History: No - Present Medications Home Medications: Ambulatory Orders Medication Instructions Recorded Confirmed Amox/Clav 875/125 [Augmentin 1 tablet PO Q12H 7 Days #14 tablet 11/05/20 875/125 Tab] Ondansetron Odt [Zofran] 4 mg TL Q6H PRN #10 tablet 11/05/20 oxyCODONE [Roxicodone] 5 - 10 mg PO Q6H PRN #20 tablet 11/05/20 Ibuprofen [Motrin] 600 mg PO TID PRN #20 tab 06/02/21 Oxycodone HCl/Acetaminophen 1 each PO Q6H PRN #10 tablet 06/02/21 [Percocet 5-325 mg Tablet] Sulfamethox/Trimeth 800/160 1 each PO BID #14 tablet 06/02/21 [Bactrim Ds 800/160] metroNIDAZOLE [Flagyl] 500 mg PO BID 7 Days #14 tablet 06/02/21 Ondansetron Odt [Zofran] 4 mg TL Q6H PRN #10 tablet 12/03/21 - Allergies Allergies/Adverse Reactions: Allergies Allergy/AdvReac Type Severity Reaction Status Date / Time No Known Drug Allergies Allergy Verified 12/03/21 21:29 - Social History Does the pt smoke?: No Smoking Status: Never smoker Does the pt drink ETOH?: No Does the pt have substance abuse?: No - Immunizations Immunizations are current?: No - POLST Patient has POLST: No PD ED PE NORMAL - Vitals Vital signs reviewed: Yes - General General: Alert and oriented X 3, No acute distress, Well developed/nourished - HEENT HEENT: Atraumatic, PERRL, EOMI, Moist mucous membranes - Neck Neck: Supple, no meningeal sign - Cardiac Cardiac: RRR, No murmur, Strong equal pulses - Respiratory Respiratory: No respiratory distress, Clear bilaterally - Abdomen Abdomen: Soft, Non tender, Non distended - Derm Derm: Normal color, Warm and dry, No rash - Extremities Extremities: No deformity, No edema - Neuro Neuro: Alert and oriented X 3, 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, Normal speech, Other (Grossly intact) - Psych Psych: Normal mood, Normal affect Results - Vitals Vitals: Vital Signs - 24 hr 12/03/21 12/03/21 12/03/21 21:29 21:37 22:54 Temperature 36.5 C Heart Rate 80 82 71 Respiratory 16 20 16 Rate Blood Pressure 148/88 H 141/89 H 129/90 H O2 Saturation 97 98 98 Oxygen O2 Source Room air - Labs Labs: Laboratory Tests 12/03/21 12/03/21 12/03/21 22:00 22:17 22:17 WBC 4.3 L RBC 5.23 Hgb 14.2 Hct 43.2 MCV 82.6 MCH 27.2 MCHC 32.9 RDW 11.6 L Plt Count 215 MPV 9.4 Neut # (Auto) 1.7 Lymph # (Auto) 1.9 Coffey # (Auto) 0.4 Eos # (Auto) 0.3 Baso # (Auto) 0.1 Absolute Nucleated RBC 0.00 Nucleated RBC % 0.0 Sodium 137 Potassium 4.1 Chloride 99 L Carbon Dioxide 29 Anion Gap 9.0 BUN 16 Creatinine 1.1 Estimated GFR (MDRD) 89 Glucose 91 Calcium 9.4 Total Bilirubin 1.4 H AST 38 ALT 59 Alkaline Phosphatase 56 Total Protein 7.8 Albumin 4.3 Globulin 3.5 Albumin/Globulin Ratio 1.2 Lipase 34 Nasal Adenovirus (PCR) NOT DETECTED Nasal B. parapertussis DNA (PCR) NOT DETECTED Nasal Coronavir 229E PCR NOT DETECTED Nasal Coronavir HKU1 PCR NOT DETECTED Nasal Coronavir NL63 PCR NOT DETECTED Nasal Coronavir OC43 PCR NOT DETECTED Nasal Enterovir/Rhinovir PCR NOT DETECTED Nasal Influenza B PCR NOT DETECTED Nasal Influenza A PCR NOT DETECTED Nasal Parainfluen 1 PCR NOT DETECTED Nasal Parainfluen 2 PCR NOT DETECTED Nasal Parainfluen 3 PCR NOT DETECTED Nasal Parainfluen 4 PCR NOT DETECTED Nasal RSV (PCR) NOT DETECTED Nasal B.pertussis DNA PCR NOT DETECTED Nasal C.pneumoniae (PCR) NOT DETECTED Yared Human Metapneumo PCR NOT DETECTED Nasal M.pneumoniae (PCR) NOT DETECTED Nasal SARS-CoV-2 (PCR) NOT DETECTED PD MEDICAL DECISION MAKING - ED course Complexity details: reviewed results, re-evaluated patient, considered differential, d/w patient ED course: The patient had a nontender abdomen and was actually well-appearing overall. I suspected a viral illness. He was worked up with laboratory studies and viral swab, as well was treated symptomatically with oral dissolving Zofran. The patient was found to be feeling better after treatment. His labs were unremarkable, and viral panel is pending at this time. We have discussed symptomatic management at home as well as the usual indications for return. Departure - Departure Disposition: 01 Home, Self Care Clinical Impression: Viral syndrome Condition: Stable Instructions: ED Viral Syndrome Prescriptions: Ondansetron Odt [Zofran] 4 mg TL Q6H PRN #10 tablet PRN Reason: Nausea / Vomiting Comments: Your labs look quite good. A viral panel has been obtained and is pending at this time. The results should be back sometime in the middle of the night. We will call you if there are any significant positive findings; however, you would like to keep tabs on the results yourself, you may go to our hospital website at [email or web address], click on the "my [email or web address]" tab, and sign up for the patient portal. Your symptoms are most likely caused by one of the many viruses that are going around right now and causing such illness. In general, these illnesses get better on their own in time. Antibiotics are not helpful for viruses and as such, are not prescribed for this kind of illness. You may take the nausea medicine as prescribed and as needed, as well as ibuprofen and/or Tylenol if needed for your headache. Please follow-up with your doctor if you are not feeling better by the middle of the week. Please be sure to drink plenty of fluids and get plenty of rest. Forms: Activity restrictions Discharge Date/Time: 12/03/21 22:55
[2021-12-03 22:25] LABS: BASOPHILS # (AUTO) 0.1 10^3/uL (0.0-0.1); BASOPHILS % (AUTO) 1.4 %; EOSINOPHILS # (AUTO) 0.3 10^3/uL (0.0-0.7); EOSINOPHILS % (AUTO) 6.9 %; HCT - HEMATOCRIT 43.2 % (42.0-52.0); HGB - HEMOGLOBIN 14.2 g/dL (14.0-18.0); LYMPHOCYTES # (AUTO) 1.9 10^3/uL (1.5-3.5); LYMPHOCYTES % (AUTO) 43.2 %; MEAN CORPUSCULAR HEMOGLOBIN 27.2 pg (27.0-31.0); MEAN CORPUSCULAR HGB CONC 32.9 g/dL (32.0-36.0); MEAN CORPUSCULAR VOLUME 82.6 fL (80.0-94.0); MEAN PLATELET VOLUME 9.4 fL (7.4-11.4); MONOCYTES # (AUTO) 0.4 10^3/uL (0.0-1.0); MONOCYTES % (AUTO) 9.9 %; NEUTROPHILS # (AUTO) 1.7 10^3/uL (1.5-6.6); NEUTROPHILS % (AUTO) 38.6 %; PLT - PLATELET COUNT 215 10^3/uL (130-450); RED BLOOD COUNT 5.23 10^6/uL (4.70-6.10); RED CELL DISTRIBUTION WIDTH 11.6 % (12.0-15.0); WHITE BLOOD COUNT 4.3 x10^3/uL (4.8-10.8)
[2021-12-03 22:38] LABS: ALBUMIN 4.3 g/dL (3.2-5.5); ALBUMIN/GLOBULIN RATIO 1.2 (1.0-2.2); BILIRUBIN,TOTAL 1.4 mg/dL (0.2-1.0); CALCIUM 9.4 mg/dL (8.5-10.3); CREATININE 1.1 mg/dL (0.6-1.2); POTASSIUM 4.1 mmol/L (3.5-5.0); TOTAL PROTEIN 7.8 g/dL (6.7-8.2)
[2021-12-03 22:54] VITALS: BP 129/90
[2021-12-03 23:05] LABS: B. PARAPERTUSSIS- RESP PCR PAN NOT DETECTED; B. PERTUSSIS- RESP PCR PANEL NOT DETECTED; C. PNEUMONIAE- RESP PCR PANEL NOT DETECTED; CORONAVIRUS 229E-RESP PCR NOT DETECTED; CORONAVIRUS HKU1-RESP PCR NOT DETECTED; CORONAVIRUS NL63-RESP PCR NOT DETECTED; CORONAVIRUS OC43-RESP PCR NOT DETECTED; HUMAN METAPNEUMOVIRUS NOT DETECTED; INFLUENZA A- RESP PCR PANEL NOT DETECTED; INFLUENZA B - RESP PCR PANEL NOT DETECTED; M. PNEUMONIAE- RESP PCR PANEL NOT DETECTED; PARAINFLUENZA VIRUS 1 NOT DETECTED; PARAINFLUENZA VIRUS 2 NOT DETECTED; PARAINFLUENZA VIRUS 3 NOT DETECTED; PARAINFLUENZA VIRUS 4 NOT DETECTED; RHINOVIRUS/ENTEROVIRUS NOT DETECTED; RSV- RESP PCR PANEL NOT DETECTED; SARS-CoV-2 -RESP PCR PANEL NOT DETECTED
== END 2021-12-03 22:55 | disposition home or self-care (01) ==
LOC: ED 21:26
DX: B34.9 Viral infection, unspecified (principal); Z20.822 Contact with and (suspected) exposure to COVID-19
CPT/HCPCS: 36415; 80053; 83690; 85025; 87633; 99282; 99283; Q0162

== ENCOUNTER 2022-02-09 08:00 | Outpatient (CLI) | payer OTHER ==
--- NOTE | 2022-02-09 15:00 | XRAY Report ---
PROCEDURE: Ankle 3 View RT INDICATIONS: ANKLE PAIN TECHNIQUE: 3 views of the ankle were acquired. COMPARISON: MRI right ankle, 01/26/2022. FINDINGS: Bones: No fractures or dislocations. Ankle mortise is normally aligned. Corticated ossicles adjace nt to the medial malleolus are noted, likely sequelae of old injury. Mild tibiotalar and talonavicula r joint degeneration. No suspicious bony lesions. There is a bone island in the distal tibial metaph ysis. Soft tissues: No tibiotalar joint effusion. Achilles tendon appears normal. IMPRESSION: 1. No acute osseous abnormalities. 2. Corticated ossicles adjacent to the medial malleolus, likely sequelae of old injury. 3. Mild degenerative joint disease. Reviewed by: Jona Randle MD on 02/09/2022 2:58 PM PDT Approved by: Jona Randle MD on 02/09/2022 2:58 PM PDT Station ID: [id number]
== END 2022-02-09 23:59 | disposition home or self-care (01) ==
LOC: DI.WOS 08:00
PROVIDERS: ATTEND Physician Assistant
DX: M19.071 Primary osteoarthritis, right ankle and foot (principal)